=== PATIENT | male | born 1960 | race Caucasian/White ===

== ENCOUNTER → 2020-07-12 | Outpatient (CLI) | payer BC, OTHER ==
[2020-07-12 11:27] LABS: BUN/CREATININE RATIO 20 (0-10)
== END ==
LOC: LAB 10:42
PROVIDERS: Family Medicine
DX: E11.40 Type 2 diabetes mellitus with diabetic neuropathy, unspecified (principal); I10 Essential (primary) hypertension
CPT/HCPCS: 80053; 80061; 83036

== ENCOUNTER → 2020-10-30 | Outpatient (CLI) | payer BC, OTHER ==
[2020-10-30 11:21] LABS: BUN/CREATININE RATIO 11 (0-10)
== END ==
LOC: LAB 10:37
PROVIDERS: Family Medicine
DX: E11.42 Type 2 diabetes mellitus with diabetic polyneuropathy (principal)
CPT/HCPCS: 36415; 80053; 80061; 83036

== ENCOUNTER 2021-01-10 12:05 | Emergency (ER) | payer BC ==
[~2021-01-10] VITALS: Ht 180.3 cm; Wt 99.8 kg
== END 2021-01-10 14:30 | disposition home or self-care (01) ==
LOC: ER1 12:05
DX: Z23 Encounter for immunization (principal); U07.1 COVID-19; E11.9 Type 2 diabetes mellitus without complications; I10 Essential (primary) hypertension; E78.5 Hyperlipidemia, unspecified; F17.290 Nicotine dependence, other tobacco product, uncomplicated
CPT/HCPCS: 99283; M0243

== ENCOUNTER → 2021-08-16 | Outpatient (CLI) | payer BC | LOC: DTC 15:24 | DX: Z71.3 Dietary counseling and surveillance (principal); E11.65 Type 2 diabetes mellitus with hyperglycemia; E11.8 Type 2 diabetes mellitus with unspecified complications | CPT/HCPCS: G0109 ==